=== PATIENT | female | born 1965 | race Caucasian/White ===

== ENCOUNTER 2019-12-05 08:20 | Emergency (ER) | payer OTHER ==
[2019-12-05] MEDS ORDERED: Sodium Chloride 0.9% 10 ML Syringe FLUSH PRN ×2 (09:03→10:59)
[2019-12-05] MEDS ORDERED: Ondansetron 4 MG/2 ML SDV IVPUSH ONE (09:03)
[2019-12-05] MEDS ORDERED: Sodium Chloride 0.9% 1,000 ML IV SCH ×2 (09:15→10:30)
--- NOTE | 2019-12-05 09:24 | EDM.PDOC ---
ED HPI GENERAL MEDICAL PROBLEM - General Chief Complaint: Abdominal Pain Stated Complaint: ABDOMINAL PAIN Time Seen by Provider: 12/05/19 08:39 Source of Information: Reports: Patient History Limitations: Reports: No Limitations - History of Present Illness INITIAL COMMENTS - FREE TEXT/NARRATIVE: Patient is a 54-year-old female who presents with complaints of low abdominal pain that started last night. She describes the pain as sharp on her left side that radiates through to her left lower back. She also describes a feeling of "fullness "in her bladder. She denies any dysuria, fever, chills, vomiting, or diarrhea, however she states she has been nauseous intermittently. Patient did just finish a course of Augmentin on for a sinusitis. She states that she did have a bowel movement last night after the pain began. States it was a normal stool. Lower Abdominal Pain Score (Numeric/FACES): 8 - Related Data Allergies Allergy/AdvReac Type Severity Reaction Status Date / Time gentamicin [Gentamicin] Allergy Swollen Verified 12/05/19 08:28 Eyes Sulfa (Sulfonamide Allergy Rash Verified 12/05/19 08:28 Antibiotics) Home Meds: Home Meds Fluticasone/Salmeterol [Advair 250-50] 1 puff INH DAILY 02/22/15 [History] Montelukast Sodium [Singulair] 10 mg PO BEDTIME 02/22/15 [History] Sertraline HCl [Zoloft] 150 mg PO DAILY 02/22/15 [History] Albuterol Sulfate [Proair Hfa] 1 puff INH Q6HR PRN 10/27/15 [History] Albuterol [Proventil Neb Soln] 2.5 mg NEB Q6HR PRN 10/27/15 [History] Estradiol [Estrace] 1 mg PO DAILY 10/27/15 [History] Hydrochlorothiazide/Losartan [Hyzaar 50-12.5 MG] 25 - 100 mg PO DAILY 10/27/15 [ History] Olopatadine [Pataday 0.2% Ophth Soln] 1 drop EYEBOTH DAILY 10/27/15 [History] Dapsone 100 mg PO DAILY 12/05/19 [History] Levothyroxine Sodium [Synthroid] 200 mcg PO DAILY 12/05/19 [History] Loratadine [Claritin] 10 mg PO DAILY 12/05/19 [History] Mycophenolate Mofetil HCl [Mycophenolate Mofetil] 2,000 mg PO DAILY 12/05/19 [ History] predniSONE [Prednisone] 50 mg PO DAILY 12/05/19 [History] Past Medical History HEENT History: Reports: Impaired Vision Other HEENT History: sinus surgery, wears glasses Cardiovascular History: Reports: Hypertension Other Cardiovascular History: pvc's Respiratory History: Reports: Asthma, Bronchitis, Recurrent, Pneumonia, Recurrent, Sleep Apnea Gastrointestinal History: Reports: GERD Other Gastrointestinal History: epigastric pain, desmoid tumor, irregular bowel movements Genitourinary History: Reports: UTI, Recurrent, Other (See Below) Other Genitourinary History: cystitis. SASH MAKER History: Reports: Other Musculoskeletal History: rheumatoid ("inflammaotry arthritis") arthritis, R epicondylar release Neurological History: Reports: Other (See Below) Other Neuro History: sinus H/A's. Endocrine/Metabolic History: Reports: Hypothyroidism, Obesity/BMI 30+, Other ( See Below) Other Endocrine/Metabolic History: thyroid cancer. Hematologic History: Reports: Anemia Immunologic History: Reports: Other (See Below) Other Immunologic History: "Pemphigus foliaceus" Oncologic (Cancer) History: Reports: Thyroid Dermatologic History: Reports: Psoriasis, Other (See Below) Other Dermatologic History: "pemphigus foliaceus." - Past Surgical History GI Surgical History: Reports: Cholecystectomy Female Surgical History: Reports: Hysterectomy, Tubal Ligation Social & Family History - Tobacco Use Smoking Status *Q: Never Smoker Second Hand Smoke Exposure: No - Caffeine Use Caffeine Use: Reports: Coffee, Soda - Recreational Drug Use Recreational Drug Use: No ED ROS GENERAL - Review of Systems Review Of Systems: Comprehensive ROS is negative, except as noted in HPI. ED EXAM, GI/ABD - Physical Exam Exam: See Below Exam Limited By: No Limitations General Appearance: Alert, WD/WN, No Apparent Distress Respiratory/Chest: No Respiratory Distress, Lungs Clear, Normal Breath Sounds, No Accessory Muscle Use, Chest Non-Tender Cardiovascular: Normal Peripheral Pulses, Regular Rate, Rhythm, No Edema, No Gallop, No JVD, No Murmur, No Rub GI/Abdominal Exam: Normal Bowel Sounds, Soft, Other (Generalized abdominal tenderness throughout. Worse in the left lower quadrant.). No: Guarding, Rigid , Rebound Back Exam: Normal Inspection, Full Range of Motion. No: CVA Tenderness (L), CVA Tenderness (R) Neurological: Alert, Oriented, CN II-XII Intact, Normal Cognition, Normal Gait, Normal Reflexes, No Motor/Sensory Deficits Psychiatric: Normal Affect, Normal Mood Skin Exam: Warm, Dry, Intact, Normal Color, No Rash Course - Vital Signs Last Recorded V/S: Last Vital Signs Temp 99.7 F 12/05/19 12:19 Pulse 80 12/05/19 12:19 Resp 16 12/05/19 12:19 BP 103/48 L 12/05/19 12:19 Pulse Ox 91 L 12/05/19 12:19 - Orders/Labs/Meds Orders: Active Orders 24 hr Category Date Time Status Peripheral IV Care [RC] . DIRECTED Care 12/05/19 09:03 Active Potassium Chloride [KCl 10 MEQ in Water 100 ML] 10 meq Med 12/05/19 10:30 Active Premix Bag 1 bag IV ASDIRECTED Sodium Chloride 0.9% [Normal Saline] 1,000 ml Med 12/05/19 09:15 Active IV ASDIRECTED Sodium Chloride 0.9% [Normal Saline] 1,000 ml Med 12/05/19 10:30 Active IV ASDIRECTED Sodium Chloride 0.9% [Saline Flush] Med 12/05/19 09:03 Active 10 ml FLUSH ASDIRECTED PRN Sodium Chloride 0.9% [Saline Flush] Med 12/05/19 10:59 Active 10 ml FLUSH ONETIME PRN Sodium Chloride 0.9% with KCl [Normal Saline with 40 Med 12/05/19 12:30 Active mEq KCl] 1,000 ml IV ASDIRECTED Peripheral IV Insertion Adult [OM.PC] Stat Oth 12/05/19 09:03 Ordered Medication Orders Sodium Chloride (Normal Saline) 1,000 mls @ 999 mls/hr IV ASDIRECTED KARLOS Last Admin: 12/05/19 09:31 Dose: 999 mls/hr Potassium Chloride 10 meq/ (Premix) 100 mls @ 100 mls/hr IV ASDIRECTED KALROS Last Admin: 12/05/19 11:05 Dose: 100 mls/hr Sodium Chloride (Normal Saline) 1,000 mls @ 125 mls/hr IV ASDIRECTED KARLOS Last Admin: 12/05/19 11:00 Dose: 125 mls/hr Potassium Chloride/Sodium Chloride (Normal Saline With 40 Meq Kcl) 1,000 mls @ 150 mls/hr IV ASDIRECTED KARLOS Last Admin: 12/05/19 12:57 Dose: 150 mls/hr Sodium Chloride (Saline Flush) 10 ml FLUSH ASDIRECTED PRN PRN Reason: Keep Vein Open Last Admin: 12/05/19 09:25 Dose: 10 ml Sodium Chloride (Saline Flush) 10 ml FLUSH ONETIME PRN PRN Reason: Keep Vein Open Last Admin: 12/05/19 11:13 Dose: 10 ml Labs: Laboratory Tests 12/05/19 12/05/19 12/05/19 Range/Units 08:40 09:25 09:25 WBC 13.78 H (3.98-10.04) K/mm3 RBC 3.79 L (3.98-5.22) M/mm3 Hgb 10.7 L D (11.2-15.7) gm/dl Hct 36.1 (34.1-44.9) % MCV 95.3 H D (79.4-94.8) fl MCH 28.2 (25.6-32.2) pg MCHC 29.6 L (32.2-35.5) g/dl RDW Std Deviation 52.8 H (36.4-46.3) fL Plt Count 191 D (182-369) K/mm3 MPV 10.9 (9.4-12.3) fl Neut % (Auto) 77.7 H (34.0-71.1) % Lymph % (Auto) 17.3 L (19.3-51.7) % Fleming % (Auto) 3.7 L (4.7-12.5) % Eos % (Auto) 0.2 L (0.7-5.8) Baso % (Auto) 0.1 (0.1-1.2) % Neut # (Auto) 10.70 H (1.56-6.13) K/mm3 Lymph # (Auto) 2.38 (1.18-3.74) K/mm3 Fleming # (Auto) 0.51 H (0.24-0.36) K/mm3 Eos # (Auto) 0.03 L (0.04-0.36) K/mm3 Baso # (Auto) 0.02 (0.01-0.08) K/mm3 Manual Slide Review Abnormal smear Sodium (136-145) mEq/L Potassium (3.5-5.1) mEq/L Chloride (98-107) mEq/L Carbon Dioxide (21-32) mEq/L Anion Gap (5-15) BUN (7-18) mg/dL Creatinine (0.55-1.02) mg/dL Est Cr Clr Drug Dosing mL/min Estimated GFR (MDRD) (>60) mL/min BUN/Creatinine Ratio (14-18) Glucose (74-106) mg/dL Calcium (8.5-10.1) mg/dL Total Bilirubin (0.2-1.0) mg/dL AST (15-37) U/L ALT (14-59) U/L Alkaline Phosphatase (46-116) U/L C-Reactive Protein (<1.0) mg/dL Total Protein (6.4-8.2) g/dl Albumin (3.4-5.0) g/dl Globulin gm/dL Albumin/Globulin Ratio (1-2) Lipase 104 (73-393) U/L Urine Color Yellow (Yellow) Urine Appearance Clear (Clear) Urine pH 5.5 (5.0-8.0) Ur Specific [place] > or = 1.030 (1.005-1.030) Urine Protein Negative (Negative) Urine Glucose (UA) Negative (Negative) Urine Ketones Negative (Negative) Urine Occult Blood Negative (Negative) Urine Nitrite Negative (Negative) Urine Bilirubin Negative (Negative) Urine Urobilinogen 0.2 (0.2-1.0) Ur Leukocyte Esterase Negative (Negative) Urine RBC 0-5 (0-5) /hpf Urine WBC 0-5 (0-5) /hpf Ur Epithelial Cells 5-10 H (0-5) /hpf Urine Bacteria Few (FEW) /hpf Hyaline Casts 0-5 (0-5) /lpf Urine Mucus Many H (FEW) /hpf 12/05/19 Range/Units 09:25 WBC (3.98-10.04) K/mm3 RBC (3.98-5.22) M/mm3 Hgb (11.2-15.7) gm/dl Hct (34.1-44.9) % MCV (79.4-94.8) fl MCH (25.6-32.2) pg MCHC (32.2-35.5) g/dl RDW Std Deviation (36.4-46.3) fL Plt Count (182-369) K/mm3 MPV (9.4-12.3) fl Neut % (Auto) (34.0-71.1) % Lymph % (Auto) (19.3-51.7) % Fleming % (Auto) (4.7-12.5) % Eos % (Auto) (0.7-5.8) Baso % (Auto) (0.1-1.2) % Neut # (Auto) (1.56-6.13) K/mm3 Lymph # (Auto) (1.18-3.74) K/mm3 Fleming # (Auto) (0.24-0.36) K/mm3 Eos # (Auto) (0.04-0.36) K/mm3 Baso # (Auto) (0.01-0.08) K/mm3 Manual Slide Review Sodium 145 (136-145) mEq/L Potassium 2.6 L (3.5-5.1) mEq/L Chloride 108 H (98-107) mEq/L Carbon Dioxide 28 (21-32) mEq/L Anion Gap 11.6 (5-15) BUN 27 H (7-18) mg/dL Creatinine 1.0 (0.55-1.02) mg/dL Est Cr Clr Drug Dosing 58.54 mL/min Estimated GFR (MDRD) 58 (>60) mL/min BUN/Creatinine Ratio 27.0 H (14-18) Glucose 100 (74-106) mg/dL Calcium 8.1 L (8.5-10.1) mg/dL Total Bilirubin 1.3 H (0.2-1.0) mg/dL AST 22 (15-37) U/L ALT 67 H (14-59) U/L Alkaline Phosphatase 30 L (46-116) U/L C-Reactive Protein 0.6 (<1.0) mg/dL Total Protein 5.6 L (6.4-8.2) g/dl Albumin 3.4 (3.4-5.0) g/dl Globulin 2.2 gm/dL Albumin/Globulin Ratio 1.6 (1-2) Lipase (73-393) U/L Urine Color (Yellow) Urine Appearance (Clear) Urine pH (5.0-8.0) Ur Specific [place] (1.005-1.030) Urine Protein (Negative) Urine Glucose (UA) (Negative) Urine Ketones (Negative) Urine Occult Blood (Negative) Urine Nitrite (Negative) Urine Bilirubin (Negative) Urine Urobilinogen (0.2-1.0) Ur Leukocyte Esterase (Negative) Urine RBC (0-5) /hpf Urine WBC (0-5) /hpf Ur Epithelial Cells (0-5) /hpf Urine Bacteria (FEW) /hpf Hyaline Casts (0-5) /lpf Urine Mucus (FEW) /hpf Meds: Medications Generic Name Dose Route Start Last Admin Trade Name Freq PRN Reason Stop Dose Admin Sodium Chloride 1,000 mls @ 999 mls/hr 12/05/19 09:15 12/05/19 09:31 Normal Saline IV 999 mls/hr ASDIRECTED KARLOS Administration Potassium Chloride 10 meq/ 100 mls @ 100 mls/hr 12/05/19 10:30 12/05/19 11:05 Premix IV 100 mls/hr ASDIRECTED KARLOS Administration Sodium Chloride 1,000 mls @ 125 mls/hr 12/05/19 10:30 12/05/19 11:00 Normal Saline IV 125 mls/hr ASDIRECTED KARLOS Administration Potassium Chloride/Sodium Chloride 1,000 mls @ 150 mls/hr 12/05/19 12:30 12:57 Normal Saline With 40 Meq Kcl IV 150 mls/hr ASDIRECTED KARLOS Administration Sodium Chloride 10 ml 12/05/19 09:03 12/05/19 09:25 Saline Flush FLUSH 10 ml ASDIRECTED PRN Administration Keep Vein Open Sodium Chloride 10 ml 12/05/19 10:59 12/05/19 11:13 Saline Flush FLUSH 10 ml ONETIME PRN Administration Keep Vein Open Discontinued Medications Generic Name Dose Route Start Last Admin Trade Name Freq PRN Reason Stop Dose Admin Diatrizoate Meglum/Diatrizoate Sod 120 ml 12/05/19 10:59 12/05/19 11:13 Gastrografin 37% PO 12/05/19 11:00 120 ml ONETIME ONE Administration Hydromorphone HCl 0.5 mg 12/05/19 11:54 12/05/19 12:12 Dilaudid IVPUSH 12/05/19 11:55 0.5 mg ONETIME ONE Administration Hydromorphone HCl 0.5 mg 12/05/19 14:03 Dilaudid IVPUSH 12/05/19 14:04 ONETIME ONE Piperacillin Sod/Tazobactam 100 mls @ 200 mls/hr 12/05/19 11:59 12/05/19 12: 27 Sod 4.5 gm/ Sodium Chloride IV 12/05/19 12:28 200 mls/hr ONETIME ONE Administration Iopamidol 100 ml 12/05/19 10:59 12/05/19 11:13 Isovue-300 (61%) IVPUSH 12/05/19 11:00 100 ml ONETIME ONE Administration Ondansetron HCl 4 mg 12/05/19 09:03 12/05/19 09:28 Zofran IVPUSH 12/05/19 09:04 4 mg ONETIME ONE Administration Potassium Chloride 40 meq 12/05/19 10:20 12/05/19 11:24 Klor-Con M20 PO 12/05/19 10:21 40 meq ONETIME ONE Administration - Re-Assessments/Exams Free Text/Narrative Re-Assessment/Exam: I've ordered a CBC, CMP, CRP, urinalysis, lipase, as well as an abdomen 2V xray. Patient denies any for any pain medications at this time. I have ordered a 1 L bolus of normal saline as well as Zofran IV. 12/05/19 10:30 WBCs were elevated at 13.78, hemoglobin low at 10.7. Potassium low at 2.6. BUN elevated at 27. Total bili was slightly elevated at 1.3. ALT slightly elevated at 67. CRP was normal. Urinalysis was normal. Abdomen x-ray does show some mild air-fluid levels as well as questionable free air beneath the right belkys-diaphragm. I have ordered an abdomen pelvis CT with contrast to rule out diverticulitis. Also ordered 40 mg of oral potassium and 10 mEq of IV potassium. Patient continues to deny the need for pain medications at this time. 12/05/19 11:56 CT of the abdomen shows 1. Free air is identified. 2. Findings compatible with diverticulitis within the sigmoid colon. Probable ruptured diverticuli causing free air within the abdomen. I did call and leave a message with general surgeon,Dr. Burnette. Updated the patient. She is expressing increased pain. I have ordered Dilaudid 0.5 mg IV to be given now. I will also start her on Zosyn IV. 12/05/19 12:[address] Burnette. She recommended that pt be sent to [place] d/t BMI >50. IV KCl is completed. I will change her IVF to NS with 40 KCl at 150ml /hr. Pt requests [facility]. I will call to arrange transfer. 12/05/19 12:[address] Maldonado at [facility]. Pt has been accepted for transfer with a direct admission to the medical floor. One call nurse will call back when bed is available and we will send the pt by [facility]. 12/05/19 14:04 [facility] has a room ready for the pt at this time. [facility] has been dispatched. I will give Dilaudid 0.5mg now in anticipation of the transfer. Departure - Departure Time of Disposition: 12:30 Disposition: DC/Tfer to Acute Hospital 02 Condition: Fair Clinical Impression: Diverticulitis of colon with perforation Qualifiers: Diverticulitis bleeding: unspecified bleeding status Qualified Code(s): K57.20 - Diverticulitis of large intestine with perforation and abscess without bleeding - Discharge Information *PRESCRIPTION DRUG MONITORING PROGRAM REVIEWED*: No *COPY OF PRESCRIPTION DRUG MONITORING REPORT IN PATIENT ANDIE: No Referrals: Irene Montaño [Primary Care Provider] - Forms: ED Department Discharge Sepsis Event Note - Evaluation Sepsis Screening Result: No Definite Risk - Focused Exam Vital Signs: Vital Signs Temp Pulse Resp BP Pulse Ox 12/05/19 12:19 99.7 F 80 16 103/48 L 91 L 12/05/19 08:25 98.1 F 76 21 H 134/75 94 L Date Exam was Performed: 12/05/19 Time Exam was Performed: 14:04 - My Orders Last 24 Hours: My Active Orders 12/05/19 09:03 Peripheral IV Care [RC] . DIRECTED Sodium Chloride 0.9% [Saline Flush] 10 ml FLUSH ASDIRECTED PRN Peripheral IV Insertion Adult [OM.PC] Stat 12/05/19 09:15 Sodium Chloride 0.9% [Normal Saline] 1,000 ml IV ASDIRECTED 12/05/19 10:30 Potassium Chloride [KCl 10 MEQ in Water 100 ML] 10 meq Premix Bag 1 bag IV ASDIRECTED Sodium Chloride 0.9% [Normal Saline] 1,000 ml IV ASDIRECTED 12/05/19 10:59 Sodium Chloride 0.9% [Saline Flush] 10 ml FLUSH ONETIME PRN 12/05/19 12:30 Sodium Chloride 0.9% with KCl [Normal Saline with 40 mEq KCl] 1,000 ml IV ASDIRECTED - Assessment/Plan Last 24 Hours: My Active Orders 12/05/19 09:03 Peripheral IV Care [RC] . DIRECTED Sodium Chloride 0.9% [Saline Flush] 10 ml FLUSH ASDIRECTED PRN Peripheral IV Insertion Adult [OM.PC] Stat 12/05/19 09:15 Sodium Chloride 0.9% [Normal Saline] 1,000 ml IV ASDIRECTED 12/05/19 10:30 Potassium Chloride [KCl 10 MEQ in Water 100 ML] 10 meq Premix Bag 1 bag IV ASDIRECTED Sodium Chloride 0.9% [Normal Saline] 1,000 ml IV ASDIRECTED 12/05/19 10:59 Sodium Chloride 0.9% [Saline Flush] 10 ml FLUSH ONETIME PRN 12/05/19 12:30 Sodium Chloride 0.9% with KCl [Normal Saline with 40 mEq KCl] 1,000 ml IV ASDIRECTED
[2019-12-05] MEDS ORDERED: Potassium Chloride 20 MEQ Tab.ER PO ONE (10:20)
[2019-12-05] MEDS ORDERED: Potassium Chloride 10 MEQ in Premix Bag 1 BAG IV SCH (10:30)
[2019-12-05] MEDS ORDERED: Diatrizoate Meglumine/Diatrizoate Sodium 37% 120 ML Bottle PO ONE (10:59)
[2019-12-05] MEDS ORDERED: Iopamidol 612 MG/ML 100 ML Bottle IVPUSH ONE (10:59)
--- NOTE | 2019-12-05 11:02 | CR ---
Abdomen: Supine and upright views of the abdomen were obtained. Comparison: No prior abdominal imaging. Surgical clips are noted from prior cholecystectomy. Calcifications are seen within the pelvis compatible with phleboliths. On the upright view there is air beneath the right hemidiaphragm either due to free air or air from interposition of bowel. Bowel gas appears normal. Bony structure shows slight degenerative change commensurate with the patient's age. Impression: 1. Air beneath the right hemidiaphragm either due to free air or air within interposition of bowel. Please correlate with the patient's symptoms. 2. No other acute finding is seen. Diagnostic code #5 This report was dictated in [place] Standard Time
--- NOTE | 2019-12-05 11:48 | CT ---
CT abdomen and pelvis Technique: Multiple axial sections were obtained from above the dome of the diaphragm inferiorly through the pubic symphysis. Delayed images were also obtained through the pelvis. Comparison: Prior abdominal x-ray performed earlier on the same day (9:38 AM). Findings: Free air is identified within the abdomen. Visualized lung bases show nothing acute. Liver contains no focal abnormality. Spleen appears within normal limits. Contrast reflux is noted within the distal esophagus. Adrenal glands show no nodule. Pancreas is within normal limits. Kidneys show symmetric contrast enhancement without hydronephrosis or mass. Surgical clips are seen from prior cholecystectomy. Aorta shows no aneurysm. No retroperitoneal adenopathy or mesenteric abnormalities are seen. No pelvic mass or adenopathy is identified. Inflammatory change is identified within the pelvis which appears to be centered around the sigmoid colon. Diverticuli are seen in this area and findings are felt compatible with diverticulitis. One of the diverticuli are likely ruptured as an etiology of the free air. No fluid collections are seen at this time to indicate discrete abscess. Bone window settings were reviewed. Mild degenerative change is scattered within the lower thoracic spine. No acute osseous finding is seen. Delayed images shows contrast within the distal ureters and within the bladder. Impression: 1. Free air is identified. 2. Findings compatible with diverticulitis within the sigmoid colon. Probable ruptured diverticuli causing the free air within the abdomen. 3. Other findings as noted above felt to be incidental. Diagnostic code #3 This report was dictated in [place] Standard Time
[2019-12-05] MEDS ORDERED: HYDROmorphone 0.5 MG/0.5 ML Syringe IVPUSH ONE ×2 (11:54→14:03)
[2019-12-05] MEDS ORDERED: Piperacillin/Tazobactam 4.5 GM in Sodium Chloride 0.9% 100 ML IV ONE (11:59)
[2019-12-05] MEDS ORDERED: Sodium Chloride 0.9% with KCl 1,000 ML IV SCH (12:30)
[2019-12-05 14:23] VITALS: BP 95/40; PULSE 78
== END 2019-12-05 14:27 ==
LOC: JD.ED 08:20
DX: Z88.1 Allergy status to other antibiotic agents (principal); Z88.2 Allergy status to sulfonamides; I10 Essential (primary) hypertension; J45.909 Unspecified asthma, uncomplicated; Z79.51 Long term (current) use of inhaled steroids; E03.9 Hypothyroidism, unspecified; Z79.890 Hormone replacement therapy; E66.9 Obesity, unspecified
CPT/HCPCS: 36415; 74019; 74177; 80053; 81001; 83690; 85025; 86140; 96361; 96365; 96366; 96367; 96375; 96376; 99285; A9270; J1170; J2405; J2543; J3480; J7030; J7050; Q9963; Q9967

== ENCOUNTER 2021-02-17 09:12 | Emergency (ER) | payer BC, OTHER ==
--- NOTE | 2021-02-17 09:25 | EDM.PDOC ---
ED HPI GENERAL MEDICAL PROBLEM - General Chief Complaint: Chest Pain Stated Complaint: CHEST PAIN X 2 DAYS Time Seen by Provider: 02/17/21 09:25 - History of Present Illness INITIAL COMMENTS - FREE TEXT/NARRATIVE: 56-year-old female presents the emergency room with chest pain. This pain started a couple of days ago. She was seen in the clinic on and told it was probably indigestion. The patient just finished a course of Augmentin yesterday and has 1 more day of Zithromax to take. She was started on these for treatment of acute sinusitis. Patient has a history of asthma. Patient has had problems with reflux in the past but this feels a little different. The pain is mostly substernal. Does not seem to radiate is worsened with deep inspiration. Patient has no history of coronary artery disease. She does not smoke she does however have asthma. Patient denies any abdominal discomfort however is having some loose stools thought to be related to the antibiotic therapy. The patient takes omeprazole daily and has not missed any doses of this. The patient believes she did have a stress test done about 3 years ago this was equivocal she underwent coronary angiogram that was unremarkable. Chest Pain Score (Numeric/FACES): 7 - Related Data Allergies Allergy/AdvReac Type Severity Reaction Status Date / Time gentamicin [Gentamicin] Allergy Swollen Verified 02/17/21 09:23 Eyes Sulfa (Sulfonamide Allergy Rash Verified 02/17/21 09:23 Antibiotics) Home Meds: Home Meds Montelukast Sodium [Singulair] 10 mg PO BEDTIME 02/22/15 [History] Sertraline HCl [Zoloft] 150 mg PO DAILY 02/22/15 [History] Albuterol Sulfate [Proair Hfa] 1 puff INH Q6HR PRN 10/27/15 [History] Albuterol [Proventil Neb Soln] 2.5 mg NEB Q6HR PRN 10/27/15 [History] estradioL [Estrace] 1 mg PO DAILY 10/27/15 [History] Levothyroxine Sodium [Synthroid] 200 mcg PO DAILY 12/05/19 [History] Mycophenolate Mofetil HCl [Mycophenolate Mofetil] 500 mg PO DAILY 12/05/19 [History] Azithromycin [Zithromax] 250 mg PO DAILY 02/17/21 [History] Losartan [Cozaar] 100 mg PO DAILY 02/17/21 [History] Potassium Chloride [Klor-Con M20] 20 meq PO BID #5 tab.er 02/17/21 [Rx] hydroCHLOROthiazide [Hydrochlorothiazide] 25 mg PO DAILY 02/17/21 [History] Past Medical History HEENT History: Reports: Impaired Vision Other HEENT History: sinus surgery, wears glasses Cardiovascular History: Reports: Hypertension Other Cardiovascular History: pvc's Respiratory History: Reports: Asthma, Bronchitis, Recurrent, Pneumonia, Recurrent, Sleep Apnea Gastrointestinal History: Reports: GERD Other Gastrointestinal History: epigastric pain, desmoid tumor, irregular bowel movements Genitourinary History: Reports: UTI, Recurrent, Other (See Below) Other Genitourinary History: cystitis. COMM[employer]CIAL [employer]IATE History: Reports: Other Musculoskeletal History: rheumatoid ("inflammaotry arthritis") arthritis, R epicondylar release Neurological History: Reports: Other (See Below) Other Neuro History: sinus H/A's. Endocrine/Metabolic History: Reports: Hypothyroidism, Obesity/BMI 30+, Other (See Below) Other Endocrine/Metabolic History: thyroid cancer. Hematologic History: Reports: Anemia Immunologic History: Reports: Other (See Below) Other Immunologic History: "Pemphigus foliaceus" Oncologic (Cancer) History: Reports: Thyroid Dermatologic History: Reports: Psoriasis, Other (See Below) Other Dermatologic History: "pemphigus foliaceus." - Past Surgical History GI Surgical History: Reports: Cholecystectomy Female Surgical History: Reports: Hysterectomy, Tubal Ligation Social & Family History - Caffeine Use Caffeine Use: Reports: Coffee, Soda ED ROS GENERAL - Review of Systems Review Of Systems: See Below Constitutional: Reports: No Symptoms HEENT: Reports: Rhinitis, Sinus Problem (This seems to be getting better) Respiratory: Reports: Pleuritic Chest Pain. Denies: Shortness of Breath, Wheezing Cardiovascular: Reports: Chest Pain. Denies: Dyspnea on Exertion, Edema, Palpitations Endocrine: Reports: No Symptoms GI/Abdominal: Reports: No Symptoms : Reports: No Symptoms Musculoskeletal: Reports: No Symptoms Skin: Reports: No Symptoms Neurological: Reports: No Symptoms ED EXAM, GENERAL - Physical Exam Exam: See Below Exam Limited By: No Limitations General Appearance: Alert, No Apparent Distress Head: Atraumatic, Normocephalic Neck: Normal Inspection, Supple, Non-Tender, Full Range of Motion. No: Lymphadenopathy (L), Lymphadenopathy (R) Respiratory/Chest: No Respiratory Distress, Lungs Clear, Normal Breath Sounds Cardiovascular: Regular Rate, Rhythm, No Edema, No Murmur GI/Abdominal: Normal Bowel Sounds, Soft, Non-Tender Extremities: Normal Inspection, No Pedal Edema Neurological: Alert, Oriented, Normal Cognition #1 Interpretation EKG Date: 02/17/21 Rhythm: NSR [place]: Other ([place] trending to leftward) P-Wave: Present QRS: Other (Possible inferior Q's) ST-T: Other (None specific nondiagnostic ST depression anterior leads) QT: Prolonged Comparison: NA - No Prior EKG EKG Interpretation Comments: Abnormal EKG Course - Vital Signs Last Recorded V/S: Last Vital Signs Temp 36.6 C 02/17/21 09:15 Pulse 68 02/17/21 09:15 Resp 15 02/17/21 10:20 BP 114/68 02/17/21 10:25 Pulse Ox 90 L 02/17/21 10:20 - Orders/Labs/Meds Orders: Active Orders 24 hr Category Date Time Status EKG Documentation Completion [RC] ASDIRECTED Care 02/17/21 09:36 Active Sodium Chloride 0.9% [Normal Saline] 1,000 ml Med 02/17/21 10:00 Active IV ASDIRECTED EKG 12 Lead [EK] Stat Ther 02/17/21 09:36 Ordered Medication Orders Sodium Chloride (Normal Saline) 1,000 mls @ 50 mls/hr IV ASDIRECTED KARLOS Last Admin: 02/17/21 10:04 Dose: 50 mls/hr Documented by: SHANIQUA Labs: Laboratory Tests 02/17/21 02/17/21 02/17/21 Range/Units 09:50 09:50 09:50 PT 10.6 (9.7-12.0) SECONDS INR 0.99 APTT 26.8 (21.7-31.4) SECONDS D-Dimer, Quantitative 0.39 (0.19-0.50) mg/L Sodium 142 (136-145) mEq/L Potassium 3.2 L (3.5-5.1) mEq/L Chloride 105 (98-107) mEq/L Carbon Dioxide 24 (21-32) mEq/L Anion Gap 16.2 H (5-15) BUN 14 (7-18) mg/dL Creatinine 0.8 (0.55-1.02) mg/dL Est Cr Clr Drug Dosing 71.50 mL/min Estimated GFR (MDRD) > 60 (>60) mL/min BUN/Creatinine Ratio 17.5 (14-18) Glucose 107 H (74-106) mg/dL Calcium 8.5 (8.5-10.1) mg/dL Total Bilirubin 0.6 (0.2-1.0) mg/dL AST 15 (15-37) U/L ALT 29 (14-59) U/L Alkaline Phosphatase 56 (46-116) U/L Troponin I < 0.017 (0.00-0.056) ng/mL Total Protein 7.7 (6.4-8.2) g/dl Albumin 3.8 (3.4-5.0) g/dl Globulin 3.9 gm/dL Albumin/Globulin Ratio 1.0 (1-2) Lipase (73-393) U/L TSH 3rd Generation (0.358-3.74) uIU/mL 02/17/21 02/17/21 02/17/21 Range/Units 09:50 09:50 12:09 PT (9.7-12.0) SECONDS INR APTT (21.7-31.4) SECONDS D-Dimer, Quantitative (0.19-0.50) mg/L Sodium (136-145) mEq/L Potassium (3.5-5.1) mEq/L Chloride (98-107) mEq/L Carbon Dioxide (21-32) mEq/L Anion Gap (5-15) BUN (7-18) mg/dL Creatinine (0.55-1.02) mg/dL Est Cr Clr Drug Dosing mL/min Estimated GFR (MDRD) (>60) mL/min BUN/Creatinine Ratio (14-18) Glucose (74-106) mg/dL Calcium (8.5-10.1) mg/dL Total Bilirubin (0.2-1.0) mg/dL AST (15-37) U/L ALT (14-59) U/L Alkaline Phosphatase (46-116) U/L Troponin I < 0.017 (0.00-0.056) ng/mL Total Protein (6.4-8.2) g/dl Albumin (3.4-5.0) g/dl Globulin gm/dL Albumin/Globulin Ratio (1-2) Lipase 143 (73-393) U/L TSH 3rd Generation 5.199 H (0.358-3.74) uIU/mL Meds: Medications Generic Name Dose Route Start Last Admin Trade Name Freq PRN Reason Stop Dose Admin Sodium Chloride 1,000 mls @ 50 mls/hr 02/17/21 10:00 02/17/21 10:04 Normal Saline IV 50 mls/hr ASDIRECTED KARLOS Administration Discontinued Medications Generic Name Dose Route Start Last Admin Trade Name Freq PRN Reason Stop Dose Admin Aspirin 324 mg 02/17/21 09:57 02/17/21 10:06 Aspirin 81 Mg Tab.Chew PO 02/17/21 09:58 324 mg ONETIME ONE Administration Lidocaine HCl 10 ml 02/17/21 10:32 02/17/21 10:39 Lidocaine 1% 10 Ml Mdv INJECT 02/17/21 10:33 Not Given ONETIME ONE Nitroglycerin 0.4 mg 02/17/21 09:57 02/17/21 10:16 Nitroglycerin 0.4 Mg Tab.Sl SL 0.4 mg Q5M PRN Administration Chest Pain Potassium Chloride 40 meq 02/17/21 12:09 Potassium Chloride 20 Meq Tab.Er PO 02/17/21 12:10 ONETIME ONE - Re-Assessments/Exams Free Text/Narrative Re-Assessment/Exam: 02/17/21 10:12 Labs ordered we will try aspirin and nitro. Her blood pressure was quite elevated upon coming in however with observation the seems to be coming down. Systolic at time of my exam was 151 it is now down to 134. 02/17/21 13:00 The second troponin is negative. We will discharge home with instructions for close follow-up. Start baby aspirin daily Departure - Departure Time of Disposition: 13:01 Disposition: Home, Self-Care 01 Clinical Impression: Chest pain Prescriptions: Potassium Chloride [Klor-Con M20] 20 meq PO BID #5 tab.er Referrals: Irene Montaño [Primary Care Provider] - Forms: ED Department Discharge Additional Instructions: Return to the emergency room with any questions problems or worsening symptoms. Follow-up with your regular healthcare provider early this next week and discussed the pros and cons of having a cardiac stress test done preferably with Cardiolite images. A prescription has been sent to [facility] in [place] for potassium take 1 this evening and then 1 twice daily for the next 2 days. 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 Sepsis Event Note (ED) - Focused Exam Vital Signs: Vital Signs Temp Pulse Resp BP BP Pulse Ox 02/17/21 10:25 114/68 02/17/21 10:20 15 94/45 L 90 L 02/17/21 10:19 17 100/56 L 93 L 02/17/21 10:16 123/59 L 02/17/21 10:12 129/66 02/17/21 10:07 134/78 02/17/21 09:15 36.6 C 68 18 201/105 H 99 - My Orders Last 24 Hours: My Active Orders 02/17/21 09:36 EKG Documentation Completion [RC] ASDIRECTED EKG 12 Lead [EK] Stat 02/17/21 10:00 Sodium Chloride 0.9% [Normal Saline] 1,000 ml IV ASDIRECTED - Assessment/Plan Last 24 Hours: My Active Orders 02/17/21 09:36 EKG Documentation Completion [RC] ASDIRECTED EKG 12 Lead [EK] Stat 02/17/21 10:00 Sodium Chloride 0.9% [Normal Saline] 1,000 ml IV ASDIRECTED
[2021-02-17 09:28] VITALS: PULSE 68
[2021-02-17] MEDS ORDERED: Aspirin 81 MG Tab.Chew PO ONE (09:57)
[2021-02-17] MEDS ORDERED: Sodium Chloride 0.9% 1,000 ML IV SCH (10:00)
[2021-02-17] MEDS: Nitroglycerin 0.4 MG Tab.SL SL PRN ×3 (10:07→10:16)
[2021-02-17] MEDS ORDERED: Lidocaine 1% 10 ML MDV INJECT ONE (10:32)
[2021-02-17] MEDS ORDERED: Potassium Chloride 20 MEQ Tab.ER PO ONE (12:09)
--- NOTE | 2021-02-17 12:31 | CR ---
Chest: Portable view of the chest was obtained. Comparison: Prior chest x-ray of 10/29/12. Heart size and mediastinum are within normal limits. Lungs are clear with no acute parenchymal change. No acute osseous abnormality is appreciated. Impression: 1. Nothing acute is appreciated on portable chest x-ray. Diagnostic code #1
[2021-02-17 13:18] VITALS: BP 160/103
== END 2021-02-17 13:15 | disposition home or self-care (01) ==
LOC: JD.ED 09:12
DX: R07.9 Chest pain, unspecified (principal); I10 Essential (primary) hypertension; J45.909 Unspecified asthma, uncomplicated; E03.9 Hypothyroidism, unspecified; E66.9 Obesity, unspecified; Z68.42 Body mass index [BMI] 45.0-49.9, adult; Z88.1 Allergy status to other antibiotic agents; Z88.2 Allergy status to sulfonamides; Z79.899 Other long term (current) drug therapy
CPT/HCPCS: 36415; 71045; 80053; 83690; 84443; 84484; 85379; 85610; 85730; 93005; 99285; A9270; J7030; 93010; 99284

== ENCOUNTER 2022-07-31 11:59 | Emergency (ER) | payer BC ==
[2022-07-31 12:28] VITALS: BP 155/81; PULSE 65
[2022-07-31] MEDS ORDERED: Sodium Chloride 0.9% 10 ML Syringe FLUSH PRN (12:42)
[2022-07-31] MEDS ORDERED: Iopamidol 612 MG/ML 100 ML Bottle IVPUSH ONE (12:58)
[2022-07-31] MEDS ORDERED: Iopamidol 612 MG/ML 50 ML SDV IVPUSH ONE (12:58)
[2022-07-31 14:44] LABS: ESTIMATED GFR 75 mL/min (>60)
== END 2022-07-31 15:35 | disposition home or self-care (01) ==
LOC: JD.ED 11:59
DX: R10.31 Right lower quadrant pain (principal); R91.1 Solitary pulmonary nodule; J45.909 Unspecified asthma, uncomplicated; E03.9 Hypothyroidism, unspecified; I10 Essential (primary) hypertension; E66.9 Obesity, unspecified; Z68.52 Body mass index [BMI] pediatric, 5th percentile to less than 85th percentile for age; Z88.1 Allergy status to other antibiotic agents; Z88.2 Allergy status to sulfonamides; Z79.899 Other long term (current) drug therapy; Z90.49 Acquired absence of other specified parts of digestive tract; Z90.710 Acquired absence of both cervix and uterus
CPT/HCPCS: 36415; 74177; 80053; 81001; 83690; 85025; 86140; 99284; J3490; Q9967